=== PATIENT | male | born 1950 | race Caucasian/White ===

== ENCOUNTER 2017-05-19 08:09 | Day surgery (SDC) | payer MEDICARE, OTHER ==
[~2017-05-19] VITALS: Ht 180.3 cm; Wt 99.5 kg
[~2017-05-19 08:09] MED LIST: ASPI-496 PO; ESOM40CA PO; METO25TA35 PO; PRAS10TA4 PO; ROSU40TA PO; TAMS0.4C2 PO
[2017-05-19] MEDS ORDERED: VISIPAQUE 270 MG/ML, 150ML BOTTLE ONE (09:00)
[2017-05-19] MEDS ORDERED: LIDOCAINE 2%, 20ML ONE (09:29)
[2017-05-19] MEDS ORDERED: hydrALAzine 20 MG/ML, 1ML ONE (09:48)
[2017-05-19] MEDS ORDERED: FENTANYL PF 100 MCG/2ML ONE ×2 (09:48)
[2017-05-19] MEDS ORDERED: PROTAMINE SULFATE 10 MG/ML, 25ML ONE (09:49)
[2017-05-19] MEDS ORDERED: FLUMAZENIL 0.1 MG/1 ML, 5ML ONE (09:49)
[2017-05-19] MEDS ORDERED: MIDAZOLAM 1 MG/ML, 5ML ONE (09:49)
[2017-05-19] MEDS ORDERED: NITROGLYCERIN 5 MG/ML, 10ML ONE (09:49)
[2017-05-19] MEDS ORDERED: NALOXONE 1 MG/ML, 2ML ONE (09:49)
[2017-05-19] MEDS ORDERED: HEPARIN 1,000 UNITS/ML, 10ML ONE (09:49)
[2017-05-19] MEDS ORDERED: HYDROcodone/APAP 5/325 TABLET ONE (13:41)
[2017-05-19] MEDS ORDERED: HYDROcodone/APAP 5/325 TABLET PO PRN (14:00)
[2017-05-19] MEDS ORDERED: ONDANSETRON 2MG/ML, 2ML IV PRN (14:00)
== END 2017-05-19 14:15 ==
LOC: OUT 08:09
PROVIDERS: ATTEND Surgery
DX: I72.2 Aneurysm of renal artery (principal); K21.9 Gastro-esophageal reflux disease without esophagitis; E78.5 Hyperlipidemia, unspecified; I10 Essential (primary) hypertension; Z95.1 Presence of aortocoronary bypass graft; Z98.42 Cataract extraction status, left eye; Z98.41 Cataract extraction status, right eye; Z98.890 Other specified postprocedural states; Z72.89 Other problems related to lifestyle; Z87.891 Personal history of nicotine dependence
CPT/HCPCS: 36200; 72148; 75625; 75716; 99156; 99157; C1751; C1769; C1894; G0269; J0360; J2250; J3010; J3490; Q9966; 75630; J1644; J2720; J2310

== ENCOUNTER → 2017-07-08 | Outpatient (CLI) | payer MEDICARE, OTHER ==
[~2017-07-08] MED LIST changes: +OMNIPAQUE 350 MG/ML, 100ML BOTTLE ONE
== END | disposition home or self-care (01) ==
LOC: CFH 12:43
PROVIDERS: ATTEND Nurse Practitioner Family
DX: N40.0 Benign prostatic hyperplasia without lower urinary tract symptoms (principal); N28.1 Cyst of kidney, acquired; K76.0 Fatty (change of) liver, not elsewhere classified; R16.1 Splenomegaly, not elsewhere classified; I10 Essential (primary) hypertension
CPT/HCPCS: 74177; Q9967